=== PATIENT | female | born 1995 | race Caucasian/White ===

== ENCOUNTER 2017-02-15 22:37 | Emergency (ER) | payer SELFPAY ==
[~2017-02-15] VITALS: Ht 154.9 cm; Wt 67.9 kg
[2017-02-15 22:40] VITALS: Ht 154.9 cm; Wt 67.9 kg
--- OUTSIDE RECORDS SUMMARY | 2017-02-15 22:42 | XMS REPORT | Referral Summary ---
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 Name Role Phone Javi Rai Primary Care Physician [phone] Encounter Date(s): 08/22/15 - 08/22/15 [facility] [address] [place] [id number] [facility] Discharge Diagnosis: Seizure disorder Discharge Diagnosis: Acne Discharge Disposition: 01-Home or Self Care Attending Physician: Corrine Rai DO Admitting Physician: Corrine Rai DO Vital Signs Most recent to 1 oldest [Reference Range]: Temperature Oral 36.7 degC [35.8-37.3 degC] (08/22/15 9:22 AM) Peripheral Pulse 68 bpm Rate [60-100 bpm] (08/22/15 9:22 AM) Respiratory Rate 16 br/min [14-20 br/min] (08/22/15 9:22 AM) Blood Pressure 118/80 mmHg [90-140/60-90 mmHg] (08/22/15 9:22 AM) Problem List Condition Effective Dates Status Health Status Informant Tobacco Active patient user(Confirmed) Allergies, Adverse Reactions, Alerts No Known Allergies Medications clindamycin 1% topical gel 1 travis, Topical, BID, # 120 g, 6 Refill(s), Pharmacy: [facility] #[id number] Start Date: 08/22/15 Status: Ordered Keppra 250 mg oral tablet See Instructions, to take one and a half tab bid, # 90 Each, 6 Refill(s), Pharmacy: [facility] #[id number], to take one and a half tab bid Start Date: 08/22/15 Status: Ordered Misc Medication 0 Refill(s) Start Date: 05/10/14 Status: Ordered Zofran 4 mg oral tablet 4 mg 1 tabs, Oral, q4hr, Nausea or Vomiting, # 90 Each, 3 Refill(s), Pharmacy: [facility] #[id number], 1 tabs Oral q4hr,PRN:Nausea or Vomiting Start Date: 08/22/15 Status: Ordered Results Hematology Most recent to 1 oldest [Reference Range]: WBC [4.8-10.8 8.4 10*3/uL 10*3/uL] (08/22/15 10:08 AM) RBC [4.00-5.20] 5.18 (08/22/15 10:08 AM) Hgb [12.0-16.0 15.1 gm/dL gm/dL] (08/22/15 10:08 AM) Hct [37.0-47.0 %] 44.4 % (08/22/15 10:08 AM) MCV [82.0-99.0 fL] 85.7 fL (08/22/15 10:08 AM) MCH [27.0-32.0 pg] 29.2 pg (08/22/15 10:08 AM) MCHC [32.0-36.0 34.0 gm/dL gm/dL] (08/22/15 10:08 AM) RDW [11.5-14.5 %] 13.7 % (08/22/15 10:08 AM) Platelet [150-400 252 10*3/uL 10*3/uL] (08/22/15 10:08 AM) MPV [8.8-14.8 fL] 11.0 fL (08/22/15 10:08 AM) Immature 0.1 % Granulocytes (08/22/15 10:08 AM) [0.0-1.0 %] Neutrophils [51-75 47 % %] *LOW* (08/22/15 10:08 AM) Lymphocytes [20-46 41 % %] (08/22/15 10:08 AM) Monocytes [4-11 %] 8 % (08/22/15 10:08 AM) Eosinophils [0-4 %] 4 % (08/22/15 10:08 AM) Basophils [0-2 %] 1 % (08/22/15 10:08 AM) Neutro Absolute 3.93 10*3 [1.90-7.00 10*3] (08/22/15 10:08 AM) Lymph Absolute 3.44 10*3 [0.80-3.30 10*3] *HI* (08/22/15 10:08 AM) Wayne Absolute 0.70 10*3 [0.30-1.00 10*3] (08/22/15 10:08 AM) Eos Absolute 0.31 10*3 [0.00-0.50 10*3] (08/22/15 10:08 AM) Baso Absolute 0.05 10*3 [0.00-0.20 10*3] (08/22/15 10:08 AM) Chemistry Most recent to 1 oldest [Reference Range]: Sodium Lvl [135-144 137 mEq/L mEq/L] (08/22/15 10:08 AM) Potassium Lvl 4.3 mEq/L [3.5-5.2 mEq/L] (08/22/15 10:08 AM) Chloride [99-111 105 mEq/L mEq/L] (08/22/15 10:08 AM) CO2 [22-31 mEq/L] 23 mEq/L (08/22/15 10:08 AM) AGAP [3-20] 9 (08/22/15 10:08 AM) BUN [7-19 mg/dL] 10 mg/dL (08/22/15 10:08 AM) Glucose Lvl [70-99 81 mg/dL mg/dL] (08/22/15 10:08 AM) Creatinine Lvl 0.78 mg/dL [0.57-1.11 mg/dL] (08/22/15 10:08 AM) eGFR [>60 mL/min] >60 mL/min 1 (08/22/15 10:08 AM) Calcium Lvl 10.7 mg/dL [8.9-10.5 mg/dL] *HI* (08/22/15 10:08 AM) Albumin Lvl [3.5-5.0 4.7 gm/dL gm/dL] (08/22/15 10:08 AM) Total Protein 7.5 gm/dL [6.4-8.3 gm/dL] (08/22/15 10:08 AM) Globulin [1.8-4.0 2.8 gm/dL gm/dL] (08/22/15 10:08 AM) ALT [0-55 U/L] 31 U/L (08/22/15 10:08 AM) AST [5-34 U/L] 34 U/L (08/22/15 10:08 AM) Alk Phos [40-150 75 U/L U/L] (08/22/15 10:08 AM) Bili Total [0.2-1.2 0.6 mg/dL mg/dL] (08/22/15 10:08 AM) TSH with Reflex Free 0.83 T4 [0.35-4.94] (08/22/15 10:08 AM) 1Result Comment: Multiply eGFR results by 1.21 for race. Immunizations No data available for this section Procedures Procedure Date Related Diagnosis Body Site Collection of venous blood by venipuncture 08/22/15 Social History Social History Type Response Smoking Status Current some day smoker; Type: Cigarettes Assessment and Plan Extracted from: Title: General Complaint * Author: Corrine Rai DO Date: 08/22/15 Impression and Plan Diagnosis Acne ([id number] L70.9, Discharge, Medical). Seizure disorder ([id number] G40.909, Discharge, Medical). Plan: recommend to get neruology apointment scheduled. recommend to decrease keppra to 1.5 tabs of 250 mg po bid. recommend to get keppra level in blood. to get cbc, cmp and tsh in office as well. to try to get hospital records from [place]. to call if worsens. , recommend topical clindamycin gel for acne. reviewed she may not drive at this time. given note to remain off work for one more week. .
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
[2017-02-15] MEDS ORDERED: NORMAL SALINE 1,000 ML IV ONE (23:15)
[2017-02-15] MEDS ORDERED: PROCHLORPERAZINE 10mg/2ml INJECTION IV ONE (23:15)
[2017-02-15] MEDS ORDERED: KETOROLAC 30mg/ml INJECTION IV ONE (23:15)
[2017-02-15] MEDS ORDERED: ORPHENADRINE 60mg/2ml INJECTION IV ONE (23:15)
[2017-02-15] MEDS ORDERED: DiphenhydrAMINE 50 MG/ML INJECTION IV ONE (23:15)
--- NOTE | 2017-02-15 23:26 | ERPDOC ---
Departure Disposition Decision Date: February 16, 2017 Disposition Decision Time: 00:33 Disposition: 01 DISCHARGED HOME, SELF-CARE Impression Impression Impression: Primary Impression: Cluster headache Qualified Codes: G44.021 - Chronic cluster headache, intractable Severity: Severe Condition: Improved Seen By: Physician only Patient Instructions: Cluster Headache (ED) Problems/Meds/Labs Reviewed?: Yes Medications reviewed and manag: Yes Additional Instructions: Routine medications as needed Use Aleve 2 tablets twice daily for baseline pain control Compazine 10 mg one tablet 3 times daily for 2 days, then every 6-8 hours as needed for headache or nausea Follow up care ordered?: Yes Mental Status: Alert, Oriented Scripts Prochlorperazine Maleate (Compazine) 10 Mg Tablet 10 MG PO QID, #30 TAB 0 Refills Prov: STEVE JERONIMO MD 02/16/17 HPI - Headache General Chief Complaint: Headache Stated Complaint: N/V, SEVERE CLUSTER HEADACHE, Time Seen by Provider: 22:47 Source: patient Exam Limitations: no limitations HPI - Headache Initial Comments Patient has been having significant cluster headaches over the past several weeks, or she has for sobriety first in inpatient detox then mirrors rehabilitation. Patient has used Imitrex at home with no relief today, and presents to the ER. Patient states this is very typical for her headaches, nothing unusual, and she occasionally needs IV medications and fluids. Occurred At: home Onset: Gradual Severity/Quality: severe Location: frontal 1 - Severe migrainous piercing headache Associated Symptoms: DENIES: confusion, facial pain, fatigue, fever/chills, flushing, loss of consciousness, nasal congestion, nasal drainage, nausea/ vomiting, numbness in legs/feet, rash, seizures, sinus infection, stiff neck, vision changes, weakness Hx of Similar Symptoms: Yes Allergies: Coded Allergies: No Known Drug Allergies (Verified Allergy, Unknown, 02/15/17) Past History Past Medical History Neurological: migraines Psychological: alcohol abuse Surgical History Denies Surgeries Social History Smoking Status: Never smoker Does patient use chewing tobac: No Second Hand Exposure: No Substance Use Type: does not use Record Review Pertinent history updated: Yes Review of Systems Constitutional Constitutional: DENIES: appetite decrease, appetite increase, chills, dizziness , fever, weakness Eyes General: photophobia ENMT Ears: DENIES: pain Hearing: DENIES: hearing loss, tinnitus Balance: DENIES: vertigo Mouth/Throat: DENIES: change in swallowing, change in voice, hoarsness, painful swallowing, sore throat Cardiovascular Cardiac: DENIES: chest pain, dyspnea on exertion Rhythm/Rate: DENIES: irregular beat, palpitations, tachycardia Vascular: DENIES: pedal edema Pulmonary Respiratory: DENIES: cough, dyspnea, pleuritic chest pain GI Upper Abdomen: nausea, vomiting, DENIES: dysphagia, heartburn/indigestion, pain Lower Abdomen: DENIES: blood in stool, constipation, diarrhea, pain General: DENIES: burning, dysuria, frequency, pain, urgency Musculoskeletal General: DENIES: cramps, joint pain, joint swelling, pain, weakness Neurological General: headache, DENIES: numbness, tingling, vertigo, weakness Psychiatric Psychiatric: DENIES: anxiety, depression, nervousness Physical Exam General General Nourishment: well nourished, well developed, appears stated age, no acute distress General Body Habitus: well groomed Vitals and Pain First Documented Vital Signs Date Time Temp Pulse Resp B/P Pulse Ox O2 Delivery O2 Flow Rate FiO2 02/15/17 22:40 97.6 45 16 107/72 98 Room Air Weight: Kilograms: 67.900 Height (feet): 5 Height (inches): 1.00 Triage Pain Scale: RN VS reviewed by Provider: Yes Normal Exams: Head: Normocephalic w/o trauma Eyes: Pupils are PERRLA w/ EOMI (significantly photophobic), No scleral icterus , irritation, or foreign bodies noted ENMT: No facial trauma, nasal exudates, pharyngeal erythema, or exudates are noted Neck: Full range of motion, without adenopathy, JVD, bruits or thyromegaly Chest/Resp: Clear all clarke, with good airflow, and symmetry bilaterally CV: Regular rate and rhythm, without murmur or gallop, Pulses 2+ all extremities, capillary refill, <2 seconds all ext., no pedal edema noted Abdomen: Bowel sounds positive, soft, non-tender, non-distended, no hepatosplenomegaly, masses or bruits noted Lymphatic: No lymphadenopathy, or lymphedema noted Musculoskeletal: No tenderness, or deformity noted, good range of motion, all extremities Integumentary: No rashes, hives, or bruising noted, hair and nails, without abnormality Neurologic: Patient is alert, and oriented, cranial nerves, motor/sensory/ cerebellar, exams w/o gross deficits, to observation Psychiatric: Patient exhibits, appropriate attention, emotion and affect Progress Results/Orders Orders Procedure Category Date Status Time Iv Lock (Ed Only) EDM 02/15/17 Transmitted 23:01 Ketorolac (Toradol) PHA 02/15/17 Complete 23:15 Prochlorperazine PHA 02/15/17 Complete (Compazine) 23:15 Diphenhydramine PHA 02/15/17 Complete (Benadryl) 23:15 Orphenadrine (Norflex) PHA 02/15/17 Complete 23:15 Normal Saline (Normal PHA 02/15/17 Complete Saline Iv) 23:15 Medications Current ED Medications Ketorolac Tromethamine (Toradol) 30 mg O ONCE IV Last administered on 23:29; Start 02/15/17 at 23:15; Stop 02/15/17 at 23:16; Status DC Prochlorperazine Edisylate (Compazine) 10 mg O ONCE IV Last administered on 23:24; Start 02/15/17 at 23:15; Stop 02/15/17 at 23:16; Status DC Diphenhydramine HCl (Benadryl) 25 mg O ONCE IV Last administered on 02/15/17 23:29; Start 02/15/17 at 23:15; Stop 02/15/17 at 23:16; Status DC Orphenadrine Citrate 60 mg 60 mg O ONCE IV Last administered on 02/15/17 23: 26; Start 02/15/17 at 23:15; Stop 02/15/17 at 23:16; Status DC Sodium Chloride (Normal Saline IV) 1,000 ml @ 0 mls/hr Q0M ONCE IV Last administered on 02/15/17 23:24; Start 02/15/17 at 23:15; Stop 02/15/17 at 23:16 ; Status DC Progress Progress Patient given 1 L normal saline IV fluid bolus, Compazine 10 mg IV, Benadryl 25 mg IV, Norflex 60 mg IV, and Toradol 30 mg IV to complete relief of her symptoms. Patient sent with pack and prescription for Compazine to use 3 times daily for the next 2 days then anytime she needs for headaches JERONIMO,STEVE MD February 15, 2017 23:25
[2017-02-15] MEDS ORDERED: TRAZ-170 PO (23:54)
[2017-02-15] MEDS ORDERED: OMEP-122 PO (23:54)
[2017-02-15] MEDS ORDERED: RIZA10TA24 PO (23:54)
[2017-02-15] MEDS ORDERED: ONDA4TAB10 PO (23:54)
[2017-02-15] MEDS ORDERED: HYDR25TA85 PO (23:54)
[2017-02-15] MEDS ORDERED: SERT100T12 PO (23:54)
[2017-02-15] MEDS ORDERED: DIVA500T55 PO (23:54)
--- NOTE | 2017-02-16 00:07 | NUR ---
STATUS PT RESTING WITH EYES CLOSED. WILL AWAKE AND ANSWER APPROPRIATELY WHEN SPOKEN TO. REPORTS IMPROVEMENT IN PAIN AND NAUSEA.
--- OUTSIDE RECORDS SUMMARY | 2017-02-16 00:28 | XMS REPORT | Continuity of Care Document ---
Author Author [facility] Address Unknown Phone Unavailable Allergies Active Description [...] Opioid use, unspecified with unspecified opioid-induced disorder CristhianYifan 01/30/2017 F F33.2 Major depressive disorder, recurrent [...] Status Pt. Type Provider Facility Loc./Unit Complaint [id number] 11/26/2016 10:31:19 11/26/2016 10:31:19 DIS Outpatient [id number] 11/26/2016 10:31:05 11/26/2016 10:31:05 DIS Outpatient [id number] 11/26/2016 10:31:04 11/26/2016 10:31:04 DIS Outpatient [id number] 10/27/2016 08:01:00 10/27/2016 08:01:00 DIS Outpatient [id number] 10/25/2016 16:11:56 10/25/2016 16:11:56 DIS Outpatient [id number] 10/25/2016 16:10:11 10/25/2016 16:10:11 DIS Outpatient [id number] 10/25/2016 14:49:11 10/25/2016 14:49:11 DIS Outpatient [id number] 08/04/2016 15:08:48 08/04/2016 15:08:48 DIS Outpatient [id number] 06/15/2016 14:30:01 06/15/2016 14:30:01 DIS Outpatient [id number] 06/01/2016 12:32:18 06/01/2016 12:32:18 DIS Outpatient [id number] 05/25/2016 14:30:46 05/25/2016 14:30:46 DIS Outpatient [id number] 05/25/2016 08:33:48 05/25/2016 08:33:48 DIS Outpatient [id number] 05/25/2016 07:06:58 05/25/2016 07:06:58 DIS Outpatient [id number] 12/01/2015 10:05:23 12/01/2015 10:05:23 DIS Outpatient [id number] 12/01/2015 10:04:15 12/01/2015 10:04:15 DIS Outpatient [id number] 12/01/2015 09:38:37 12/01/2015 09:38:37 DIS Outpatient [id number] 12/01/2015 09:23:19 12/01/2015 09:23:20 DIS Outpatient [id number] 12/01/2015 08:46:17 12/01/2015 08:46:17 DIS Outpatient [id number] 08/22/2015 10:11:43 08/22/2015 10:11:43 DIS Outpatient [id number] 08/22/2015 10:10:27 08/22/2015 10:10:27 DIS Outpatient [id number] 08/22/2015 10:10:26 08/22/2015 10:10:26 DIS Outpatient [id number] 02/01/2017 10:52:27 DIS Outpatient [id number] 01/08/2017 19:03:49 DIS Outpatient [id number] 10/25/2016 16:11:40 DIS Outpatient [id number] 10/25/2016 16:10:25 DIS Outpatient [id number] 10/21/2016 15:37:24 DIS Outpatient [id number] 10/21/2016 11:45:30 DIS Outpatient [id number] 10/12/2016 06:48:32 ACT Outpatient [id number] 12/01/2015 15:57:27 DIS Outpatient [id number] 12/01/2015 10:22:01 DIS Outpatient [id number] 12/01/2015 10:05:21 DIS Outpatient [id number] 12/01/2015 10:04:17 DIS Outpatient [id number] 12/01/2015 08:48:00 Document Registration [id number] 12/01/2015 08:38:03 DIS Outpatient [id number] 12/01/2015 08:35:52 DIS Outpatient
[2017-02-16] MEDS ORDERED: PROC-14 PO (00:34)
[2017-02-16 00:45] VITALS: BP 110/71; PULSE 52; RESP 16; TEMP 97.6; O2SAT 99
[2017-02-16] MEDS ORDERED: PROCHLORPERAZINE 10MG (PrePack) SENT HOME ONE (00:45)
== END 2017-02-16 00:45 | disposition home or self-care (01) ==
LOC: ED 22:37
DX: G44.021 Chronic cluster headache, intractable (principal)